=== PATIENT | female | born 2000 | race Caucasian/White ===

== ENCOUNTER 2024-02-25 10:04 | Outpatient (CLI) | payer BC, SELFPAY ==
[2024-02-25 11:02] LABS: Free T4 Free Thyroxine 1.25 ng/dL (0.82-1.77); Testosterone Total 65.8 ng/dL (8.4-48.1); Thyroid Stimulating Hormone 2.27 uIU/mL (0.27-4.20)
[2024-02-25 11:27] LABS: Estradiol 57.6 pg/mL; Follicle Stimulating Hormone 10.4 mIU/mL; Luteinizing Hormone 21.6 mIU/mL (0.5-41.7); Prolactin 18.16 ng/mL (4.8-23.3)
[2024-02-26 20:34] LABS: Dehydroepiandrosterone Sulfate 312 mcg/dL (14-349)
== END 2024-02-25 10:05 | disposition home or self-care (01) ==
PROVIDERS: PCP Nurse Practitioner Family; Visit Provider Internal Medicine
DX: N92.6 Irregular menstruation, unspecified (principal)
CPT/HCPCS: 36415; 82627; 82670; 83001; 83002; 83498; 84146; 84403; 84439; 84443